=== PATIENT | female | born 2005 | race African-American/Black ===

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

== ENCOUNTER 2025-02-09 08:10 | Emergency (ER) | payer BC, MEDICAID ==
[~2025-02-09] VITALS: Ht 180.3 cm; Wt 82.0 kg
[~2025-02-09 08:10] MED LIST: BENZ100C86 PO
[2025-02-09 08:22] VITALS: O2SAT 96
[2025-02-09 09:23] VITALS: BP 105/65; PULSE 79; RESP 17; TEMP 36.7; O2SAT 100
== END 2025-02-09 09:25 | disposition home or self-care (01) ==
LOC: ER 08:10
DX: H61.23 Impacted cerumen, bilateral (principal); Z79.899 Other long term (current) drug therapy
CPT/HCPCS: 99282